=== PATIENT | female | born 1985 | race Hispanic/Latino ===

== ENCOUNTER 2017-10-18 21:10 | Inpatient (IN) | payer SELFPAY ==
[2017-10-18 22:07] LABS: Amnisure Test No Membranes Rupture (No Rupture)
[2017-10-18 22:08] LABS: Amnisure Internal Control QC ACCEPTABLE (ACCEPTABLE)
[2017-10-18 22:10] VITALS: BMI 35.6
[2017-10-18] MEDS ORDERED: Ondansetron HCl/PF 4 MG/2 ML Vial IVP PRN (22:46)
[2017-10-18] MEDS ORDERED: Lidocaine 1% (PF) 30 ML VIAL SC PRN (22:46)
[2017-10-18] MEDS ORDERED: Carboprost 250 MCG/ML AMP IM PRN (22:46)
[2017-10-18] MEDS ORDERED: Diphenoxylate HCl/Atropine Tablet PO PRN (22:46)
[2017-10-18] MEDS ORDERED: Lactated Ringer's 1,000 ML IV SCH (22:46)
[2017-10-18] MEDS ORDERED: LR 500 ML/Oxytocin 10 units 500 ML IV SCH (22:46)
[2017-10-18] MEDS ORDERED: Promethazine HCl 25 MG/ML VIAL IM PRN (22:46)
[2017-10-18] MEDS ORDERED: Acetaminophen/Codeine 30-300mg Tablet PO PRN ×2 (22:46)
[2017-10-18] MEDS: Lactated Ringer's 1,000 ML IV SCH (23:10)
[2017-10-18 23:35] LABS: Hemoglobin 12.6 g/dL (12.0-16.0); Mean Corpuscular HGB CONC 34.6 g/dL (32.0-36.0); Mean Corpuscular Hemoglobin 29.8 pg (27.0-31.0); Mean Corpuscular Volume 86.2 fl (81.0-99.0); Mean Platelet Volume 10.5 fL (7.4-10.4); Platelet Count 125 thou/uL (130-400); RBC Distribution Width 12.4 % (11.5-14.5); Red Blood Cell (RBC) Count 4.23 mill/uL (4.20-5.40)
[2017-10-19 00:13] LABS: Syphilis Antibody Nonreactive (Nonreactive); Syphilis Antibody Index 0.03 S/CO (<1.00 Non-Reactive)
[2017-10-19 00:14] LABS: HBSAg Index 0.19 S/CO (0-0.99); Hep B Surf Ag Non-Reactive S/CO (NonReactive)
[2017-10-19] MEDS: Lactated Ringer's 1,000 ML IV SCH ×2 (06:46→16:26)
[2017-10-19] MEDS ORDERED: Bupivacaine 0.5% 20 ML, Fentanyl 400 MCG in Sodium Chloride 0.9% 72 ML EPIDURAL SCH (10:15)
[2017-10-19] MEDS ORDERED: DISCONTINUE ALL PREVIOUS NARCOTICS FS SCH (10:15)
[2017-10-19] MEDS: LR / Pitocin 40 units/1000 ml 1,000 ML IV PRN ×2 (12:40→14:23)
[2017-10-19] MEDS ORDERED: Misoprostol 200 MCG TAB ONE (12:46)
--- NOTE | 2017-10-19 14:31 | OP ---
PREOPERATIVE DIAGNOSES: 1. Term . 2. Labor. POSTOPERATIVE DIAGNOSES: 1. Term . 2. Labor. 3. True knot x1. PROCEDURE PERFORMED: Spontaneous vaginal delivery with repair of first degree midline episiotomy and Pitocin augmentation. SURGEON: Silver Briseno M.D. ANESTHESIA: Local. DESCRIPTION OF PROCEDURE: This is a 32-year-old Latin-[place]ish female G2, P1 taken to delivery room, complete and pushing. Prepped and draped sterilely. Delivered a baby girl with Apgars 8 at 1 minut e, 9 at 5 minutes. Baby did breathe and cry vigorously upon delivery. Repaired a first degree midli ne episiotomy with 3-0 chromic. Estimated blood loss was 350 mL. Mother and baby did well.
[2017-10-19] MEDS ORDERED: HYDROcodone/Acetaminophen 5/325 mg Tablet PO PRN (15:40)
[2017-10-19] MEDS ORDERED: LR / Pitocin 40 units/1000 ml 1,000 ML IV SCH (15:40)
[2017-10-19] MEDS ORDERED: Adacel (T-DAP) 0.5 ML VIAL IM ONE (15:40)
[2017-10-19] MEDS ORDERED: Bisacodyl 10 MG SUPP PR PRN (15:40)
[2017-10-19] MEDS ORDERED: Milk Of Magnesia 30 ML UDCUP PO PRN (15:40)
[2017-10-19] MEDS: Ferrous Sulfate 325 MG TAB PO SCH (17:46)
[2017-10-19] MEDS: Docusate Calcium (SURFAK) 240 MG CAP PO SCH (21:43)
[2017-10-20 05:36] LABS: Hemoglobin 11.9 g/dL (12.0-16.0); Mean Corpuscular HGB CONC 34.6 g/dL (32.0-36.0); Mean Corpuscular Volume 86.5 fl (81.0-99.0); Mean Platelet Volume 9.7 fL (7.4-10.4); Platelet Count 126 thou/uL (130-400); RBC Distribution Width 12.7 % (11.5-14.5); Red Blood Cell (RBC) Count 3.98 mill/uL (4.20-5.40); White Blood Cell (WBC) Count 9.7 thou/uL (4.8-10.8)
[2017-10-20 07:54] VITALS: TEMP 99
[2017-10-20] MEDS: Ferrous Sulfate 325 MG TAB PO SCH (09:46)
[2017-10-20] MEDS: Docusate Calcium (SURFAK) 240 MG CAP PO SCH (09:47)
[2017-10-20 11:26] VITALS: BP 123/69
--- NOTE | 2017-10-20 12:29 | PDOC.PP ---
Post Progress Note Post Day #: 1 Subjective: Pt feeling well, ambulating, tolerating PO, no pain, lochia minimal PO intake tolerated: yes Flatus: yes Ambulation: yes Vital Signs (12 hours) Temp Pulse Resp BP 10/20/17 11:26 99.0 F 97 18 123/69 10/20/17 08:05 99.0 F 82 20 10/20/17 07:53 99.0 F 82 20 129/60 10/20/17 03:50 99.0 F 84 20 124/59 L Weight Weight 208 lb - Physical Examination General: NAD Cardiovascular: no m/r/g, RRR Respiratory: clear to auscultation bilaterally, non-labored breathing Abdominal: + bowel sounds, lochia, no distention, appropriately TTP Result Diagrams: 10/20/17 05:18 Additional Labs: Post Labs Hep Bs Antigen Non-Reactive S/CO (NonReactive) 10/18/17 23:10 (1) Vaginal delivery Code(s): O80 - ENCOUNTER FOR FULL-TERM UNCOMPLICATED DELIVERY Status: Acute - Assessment/Plan PP day #1 Routine care D/C home at pt request F/U 6 weeks with Hoa Briseno
== END 2017-10-20 17:55 | disposition home or self-care (01) | DRG 775 ==
LOC: L&D/OP 21:10 → L&D 23:07 → 3SW 10-19 15:32
PROVIDERS: ADMIT Family Medicine; ATTEND Family Medicine
PROC: 10E0XZZ Delivery of Products of Conception, External Approach (ICD-10-PCS; principal; 2017-10-19)
PROC: 0HQ9XZZ Repair Perineum Skin, External Approach (ICD-10-PCS; 2017-10-19)
DX: O70.0 First degree perineal laceration during delivery (principal); Z37.0 Single live birth; Z3A.39 39 weeks gestation of pregnancy
CPT/HCPCS: 36415; 84112; 85027; 86780; 87340; 90715; 99285; J2001; J3010; J3490; J7050; J7120

== ENCOUNTER 2019-10-08 19:45 | Inpatient (IN) | payer MEDICAID, OTHER, SELFPAY ==
[2019-10-09 04:43] VITALS: BMI 38.4
[2019-10-09] MEDS ORDERED: Zolpidem Tartrate 5 MG TAB PO PRN (04:46)
[2019-10-09] MEDS ORDERED: hydrALAZINE 20 MG/ML VIAL SLOW IVP PRN ×2 (04:46→14:57)
[2019-10-09] MEDS ORDERED: NS / Oxytocin 40 units/1000ml 1,000 ML IV PRN (04:46)
[2019-10-09] MEDS ORDERED: Promethazine HCl 25 MG/ML VIAL IM PRN (04:46)
[2019-10-09] MEDS ORDERED: HYDROcodone/Acetaminophen 5/325 mg Tablet PO PRN ×2 (04:46→14:57)
[2019-10-09] MEDS ORDERED: Acetaminophen 500 MG TAB PO PRN (04:46)
[2019-10-09] MEDS ORDERED: Butorphanol Tartrate 1 MG/ML VIAL SLOW IVP PRN (04:46)
[2019-10-09] MEDS ORDERED: Acetaminophen/Codeine 30-300mg Tablet PO PRN ×2 (04:46→14:57)
[2019-10-09] MEDS ORDERED: NS w/ Oxytocin 10 units 500 ML IV SCH ×2 (04:46)
[2019-10-09] MEDS ORDERED: Lidocaine 1% (PF) 30 ML VIAL SC PRN (04:46)
[2019-10-09] MEDS ORDERED: Ibuprofen 800 MG TAB PO PRN (04:46)
[2019-10-09] MEDS ORDERED: Methylergonovine 0.2 MG/ML VIAL IM PRN (04:46)
[2019-10-09] MEDS ORDERED: Ondansetron PF 4 MG/2 ML Vial IVP PRN ×2 (04:46→14:57)
[2019-10-09] MEDS ORDERED: Misoprostol 200 MCG TAB PR PRN (04:46)
[2019-10-09] MEDS ORDERED: Misoprostol 100 MCG TAB VAG SCH (05:00)
[2019-10-09] MEDS: Lactated Ringer's 1,000 ML IV SCH ×2 (05:06→09:16)
[2019-10-09 05:40] LABS: Hemoglobin 12.2 g/dL (12.0-16.0); Mean Corpuscular HGB CONC 33.2 g/dL (32.0-36.0); Mean Corpuscular Volume 84.1 fL (78.0-98.0); Mean Platelet Volume 10.9 fL (7.4-10.4); Platelet Count 148 thou/uL (130-400); RBC Distribution Width 13.7 % (11.5-14.5); Red Blood Cell (RBC) Count 4.37 mill/uL (4.20-5.40)
[2019-10-09 06:23] LABS: Syphilis Antibody Nonreactive (Nonreactive); Syphilis Antibody Index 0.04 S/CO (<1.00 Non-Reactive)
[2019-10-09 06:24] LABS: HBSAg Index 0.18 S/CO (0-0.99); Hep B Surf Ag Non-Reactive S/CO (NonReactive)
[2019-10-09] MEDS ORDERED: Bisacodyl 10 MG SUPP PR PRN (14:57)
[2019-10-09] MEDS ORDERED: NS / Oxytocin 40 units/1000ml 1,000 ML IV SCH (14:57)
[2019-10-09] MEDS ORDERED: Preparation H Ointment 28 GM TUBE PR PRN (14:57)
[2019-10-09] MEDS ORDERED: Milk Of Magnesia 30 ML UDCUP PO PRN (14:57)
[2019-10-09] MEDS ORDERED: Lanolin Ointment 7 GM TUBE TOP PRN (14:57)
[2019-10-09] MEDS ORDERED: Benzocaine-Menthol 82.5 ML CAN TOP PRN (14:57)
[2019-10-09] MEDS ORDERED: diphenhydrAMINE 25 MG CAP PO PRN (14:57)
[2019-10-09] MEDS: Ferrous Sulfate 325 MG TAB PO SCH (16:31)
[2019-10-09] MEDS: Docusate Calcium (SURFAK) 240 MG CAP PO SCH (19:51)
[2019-10-09] MEDS ORDERED: FLU VACC QS2019-20(6MOS UP)/PF 60 MCG/0.5 ML SYRINGE IM ONE (21:00)
[2019-10-09] MEDS: Ibuprofen 800 MG TAB PO SCH (21:23)
[2019-10-10] MEDS: Ibuprofen 800 MG TAB PO SCH (05:15)
[2019-10-10 07:49] VITALS: TEMP 98.3
[2019-10-10] MEDS: Ferrous Sulfate 325 MG TAB PO SCH (08:27)
[2019-10-10] MEDS ORDERED: Prenatal Vitamin 1 TAB PO SCH (09:00)
[2019-10-10] MEDS: Docusate Calcium (SURFAK) 240 MG CAP PO SCH (09:28)
[2019-10-10 11:20] VITALS: BP 109/54
== END 2019-10-10 14:53 | disposition home or self-care (01) | DRG 807 ==
LOC: L&D 10-09 04:18 → 3SW 10-09 16:04
PROVIDERS: ADMIT Family Medicine; ATTEND Family Medicine
PROC: 10E0XZZ Delivery of Products of Conception, External Approach (ICD-10-PCS; principal; 2019-10-09)
PROC: 3E033VJ Introduction of Other Hormone into Peripheral Vein, Percutaneous Approach (ICD-10-PCS; 2019-10-09)
PROC: 10907ZC Drainage of Amniotic Fluid, Therapeutic from Products of Conception, Via Natural or Artificial Opening (ICD-10-PCS; 2019-10-09)
DX: O48.0 Post-term pregnancy (principal); Z37.0 Single live birth; Z3A.40 40 weeks gestation of pregnancy
CPT/HCPCS: 36415; 85027; 86780; 86850; 86900; 86901; 87340; J2590

== ENCOUNTER 2022-03-18 00:07 | Emergency (ER) | payer SELFPAY ==
[2022-03-18 01:05] LABS: #Eosinphils 0.3 thou/uL (0.0-0.7); #Lymphocytes 2.3 thou/uL (1.20-3.40); #Monocytes 0.8 thou/uL (0.11-0.59); #Neutrophils 7.7 thou/uL (1.40-6.50); %Basophils 0.4 % (0.0-1.0); %Eosinophils 2.8 % (0.0-10.0); %Lymphocytes 20.6 % (21.0-51.0); %Monocytes 7.3 % (0.0-10.0); %Neutrophils 68.8 % (42.0-75.0); Hemoglobin 13.8 g/dL (12.0-16.0); Mean Corpuscular HGB CONC 34.1 g/dL (32.0-36.0); Mean Corpuscular Hemoglobin 29.5 pg (27.0-31.0); Mean Corpuscular Volume 86.5 fL (78.0-98.0); Mean Platelet Volume 10.1 fL (7.4-10.4); Platelet Count 185 thou/uL (130-400); RBC Distribution Width 12.1 % (11.5-14.5); Red Blood Cell (RBC) Count 4.69 mill/uL (4.20-5.40); White Blood Cell (WBC) Count 11.2 thou/uL (4.8-10.8)
[2022-03-18 01:21] LABS: Bacteria/HPF None Seen HPF (None Seen); Bilirubin Negative (Negative); Blood, Urine Trace (Negative); Calcium Oxalate Crystals 1+ HPF (None Seen); Clarity Clear (Clear); Glucose, Urine (Dipstick) Normal (Negative); Ketone, Urine Negative (Negative); Leukocyte Negative Leu/uL (Negative); Nitrite Negative (Negative); Protein, Urine (Dipstick) Negative (Neg-Trace); Squamous Epithelial 0-3 HPF (0-3); Urobilinogen Normal mg/dL (Less than 2); WBC/HPF 0-3 HPF (0-3)
[2022-03-18 01:27] LABS: ALT (SGPT) 29 U/L (8-55); AST (SGOT) 22 U/L (5-34); Albumin 4.2 g/dL (3.5-5.0); Alkaline Phosphatase 119 U/L (40-110); Anion Gap 16 mmol/L (10-20); BUN (Urea Nitrogen) 12 mg/dL (7.0-18.7); Bilirubin, Total 0.3 mg/dL (0.2-1.2); Calc. Creatinine Clearance 0 mL/min (70-130); Carbon Dioxide 23 mmol/L (22-29); Chloride 105 mmol/L (98-107); Estimated GFR 63; Globulin 3.4 g/dL (2.4-3.5); Glucose 108 mg/dL (70-105); Lipase 26 U/L (8-78); Protein, Total 7.6 g/dL (6.0-8.3); Sodium 139 mmol/L (136-145)
[2022-03-18 02:28] LABS: Pregnancy Test - Urine (BHCG) Negative (Negative); Pregu Control Background? CLEAR/WHITE (CLR/WHITE); Pregu Control Bar Appear? YES (CONTROL BAR)
== END 2022-03-18 03:49 | disposition home or self-care (01) ==
LOC: ERS 00:07
DX: N13.2 Hydronephrosis with renal and ureteral calculous obstruction (principal); E11.9 Type 2 diabetes mellitus without complications; Z79.84 Long term (current) use of oral hypoglycemic drugs
CPT/HCPCS: 36415; 74176; 80053; 81003; 81015; 81025; 83690; 85025